=== PATIENT | female | born 1990 | race African-American/Black ===

== ENCOUNTER 2024-12-04 01:46 | Emergency (ER) | payer OTHER ==
[~2024-12-04] VITALS: Ht 160 cm; Wt 91.0 kg
[2024-12-04 01:54] VITALS: BP 151/110
[2024-12-04 02:00] VITALS: BP 160/98
[2024-12-04] MEDS ORDERED: ASPIRIN 81 MG/TAB PO ONE (02:15)
[2024-12-04] MEDS ORDERED: KETOROLAC TROMETHAMINE 30 MG/ML SDV IV ONE (02:15)
[2024-12-04] MEDS ORDERED: ACETAMINOPHEN 500 MG TAB PO ONE (02:15)
[2024-12-04 02:27] LABS: BASO% 0.3 % (0-3); EOS% 5.1 % (0-8); HEMATOCRIT 34.8 % (37.0-47.0); HEMOGLOBIN 10.6 g/dl (12.0-16.0); LYMPH% 38.8 % (15-41); MEAN CELL VOLUME 77.7 fL CALC (80.0-100.0); MEAN CORPUSCULAR HGB 23.7 pG CALC (26.0-32.0); MEAN CORPUSCULAR HGB CONC 30.5 g/dL CAL (32.0-36.0); MONO% 10.6 % (2-13); NEUT# 2.82 thou/uL (2.00-7.15); NEUT% 45.2 % (42-76); RED BLOOD COUNT 4.48 mill/uL (4.20-5.60); RED CELL DISTRI WIDTH 15.5 % (11.5-15.5)
[2024-12-04 02:30] VITALS: BP 152/111
[2024-12-04 02:44] LABS: ALBUMIN 4.4 g/dL (3.2-5.0); ALKALINE PHOSPHATASE 70 u/l (38-126); ANION GAP 11 (6-22 (CALC)); BILIRUBIN, TOTAL 0.5 mg/dL (0.02-1.3); BUN 20 mg/dL (7-17); BUN/CREATININE RATIO 20 (12-20 (CALC)); CARBON DIOXIDE 23 mmol/l (22-30); CHLORIDE 106 mmol/l (95-108); ESTIMATED GFR 75 ML/MIN (>=90 (CALC)); LIPASE 82 u/l (23-300); POTASSIUM 3.8 mmol/l (3.5-5.1); SGOT/AST 38 u/l (14-36); SODIUM 137 mmol/l (137-146); TOTAL PROTEIN 8.5 g/dL (6.3-8.2)
[2024-12-04 02:53] LABS: ACT PARTIAL THROMBO TIME 27.9 SECONDS (20.0-32.5); D-DIMER 0.25 mg/L (0.19-0.60); PROTHROMBIN TIME 10.6 SECONDS (9.0-12.5)
[2024-12-04 03:00] VITALS: BP 149/109
[2024-12-04 03:15] LABS: URINE BILIRUBIN - DIPSTICK Negative (NEGATIVE); URINE BLOOD DIPSTICK Moderate (NEGATIVE); URINE COLOR Yellow; URINE GLUCOSE - DIPSTICK Negative (NEGATIVE); URINE LEUK ESTERASE Trace (NEGATIVE); URINE NITRITE - DIPSTICK Negative (Negative); URINE PROTEIN - DIPSTICK Negative (NEG-TRACE); URINE SPECIFIC GRAVITY 1.015; URINE UROBILINOGEN - DIPSTICK 0.2 E.U./dL (0.2)
[2024-12-04 03:16] LABS: URINE KETONE Negative (NEGATIVE)
[2024-12-04 03:20] LABS: URINE RBC 50-100 RBC/hpf (0-5)
[2024-12-04 03:21] LABS: URINE BACTERIA FEW hpf; URINE EPITHELIAL CELLS FEW EPI/hpf (0-FEW)
[2024-12-04 03:30] VITALS: BP 155/103
[2024-12-04] MEDS ORDERED: TORADOL PO (03:31)
[2024-12-04 03:44] VITALS: BP 153/98
== END 2024-12-04 03:54 | disposition home or self-care (01) ==
LOC: ED 01:46
PROVIDERS: Family Medicine
DX: R07.89 Other chest pain (principal); I10 Essential (primary) hypertension